=== PATIENT | male | born 1995 | race Hispanic/Latino ===

== ENCOUNTER 2019-02-19 01:43 | Emergency (ER) | payer SELFPAY ==
[2019-02-19] MEDS ORDERED: Ketorolac Tromethamine 60 MG/2 ML VIAL ONE (02:09)
[2019-02-19] MEDS ORDERED: Dexamethasone 20 MG/5 ML VIAL ONE (02:09)
[2019-02-19] MEDS ORDERED: AMOXicillin 250 MG CAP ONE (02:10)
== END 2019-02-19 02:32 | disposition home or self-care (01) ==
LOC: NAV ERS 01:43
DX: H92.02 Otalgia, left ear (principal); I10 Essential (primary) hypertension
CPT/HCPCS: 96372; J1100; J1885

== ENCOUNTER 2020-03-19 19:38 | Emergency (ER) | payer OTHER, SELFPAY | END 2020-03-19 20:20 | disposition home or self-care (01) | LOC: NAV ERS 19:38 | DX: U07.1 COVID-19 (principal); J06.9 Acute upper respiratory infection, unspecified | CPT/HCPCS: 87635; 99283; U0003 ==

== ENCOUNTER 2023-05-31 19:29 | Emergency (ER) | payer SELFPAY ==
[2023-05-31] MEDS ORDERED: Fluorescein Opthalmic Strip ONE (19:45)
[2023-05-31] MEDS ORDERED: Tetracaine 0.5% PF 4 ML BOT ONE (19:45)
[2023-05-31] MEDS ORDERED: Erythromycin Base 0.5% Oint 1 GM TUBE ONE (20:01)
[2023-05-31] MEDS ORDERED: Gentamicin Ophth Soln 0.3% 5 ml Bottle ONE (20:01)
[2023-05-31] MEDS ORDERED: Boostrix 0.5 ML (Tdap) VIAL (>/=7 yrs of age) ONE (20:05)
== END 2023-05-31 20:28 | disposition home or self-care (01) ==
LOC: NAV ERS 19:29
DX: T15.02XA Foreign body in cornea, left eye, initial encounter (principal)
CPT/HCPCS: 90471; 90715